=== PATIENT | female | born 1980 | race American Indian/Alaskan Native ===

== ENCOUNTER 2016-07-01 12:27 | Outpatient (CLI) | payer MEDICAID ==
--- NOTE | 2016-07-01 13:24 | XRay Report ---
Left ankle 3 views. Findings: There are no fractures or other acute findings. There is curvilinear calcification at the insertion of the Achilles tendon probably due to tendinitis. There are no other significant findings.
== END 2016-07-01 12:28 | disposition home or self-care (01) ==
LOC: SPVIMAG 12:27
PROVIDERS: ATTEND Family Medicine
DX: M25.872 Other specified joint disorders, left ankle and foot (principal); M25.572 Pain in left ankle and joints of left foot; M79.89 Other specified soft tissue disorders

== ENCOUNTER 2016-09-07 07:56 | Day surgery (SDC) | payer MEDICAID ==
[~2016-09-07 07:56] MED LIST: CLEOCIN 600 MG/50 mL 600 MG/50 ML BAG IV NR; HEPARIN SUB-Q NR
[2016-09-07] MEDS ORDERED: MARCAINE-EPI 0.25%-1:200,000 INFILTRATI ONE ×3 (08:31→11:14)
--- NOTE | 2016-09-07 09:15 | Anesthesia Day of Surgery ---
Anesthesia Day of Surgery - Day of Surgery Patient Examined: Yes Patient H&P Reviewed: Yes Patient is NPO: Yes Beta Blockers: Yes
--- NOTE | 2016-09-07 09:18 | Anesthesia Consultation ---
Anesthesia Consult and Med Hx Date of service: 09/07/16 - Airway Anesthetic Teeth Evaluation: Good ROM Head & Neck: Adequate Mental/Hyoid Distance: Adequate Mallampati Class: Class II Intubation Access Assessment: Probably Good - Pulmonary Exam CTA: Yes - Cardiac Exam Cardiac Exam: RRR - Pre-Operative Health Status ASA Pre-Surgery Classification: ASA3 Proposed Anesthetic Plan: General - Pulmonary Hx Smoking: No Hx Asthma: Yes (exercise induced) SOB: Yes (SOB WITH ACTIVITY) Hx Sleep Apnea: No (JANET PRE SCREEN HIGH RISK) - Cardiovascular System Hx Hypertension: Yes (WITH PREG ONLY, ON METOPROLOL DUE TO FAST HR) Hx Angina: Yes (STATES DUE TO ANEMIA) - Central Nervous System Hx Seizures: No CVA: No Hx Back Pain: Yes - Endocrine Hx Renal Disease: No Hx Liver Disease: No Hx Non-Insulin Dependent Diabetes: Yes Hx Hypothyroidism: No - Hematic Hx Anemia: Yes - Other Systems Hx Cancer: No Hx Obesity: Yes (Morbid obesity BMI 55.9) - Additional Comments Anesthesia Medical History Comments: NAC
[2016-09-07] MEDS ORDERED: NACL BACTERIOSTATIC INFILTRATI ONE (09:28)
[2016-09-07] MEDS ORDERED: SUBLIMAZE IV PRN (09:53)
[2016-09-07] MEDS ORDERED: ZOFRAN IV PRN (09:53)
[2016-09-07] MEDS ORDERED: TRANSDERM-SCOP TD NR (09:54)
[2016-09-07] MEDS ORDERED: VERSED IV NR (10:00)
[2016-09-07] MEDS ORDERED: LACTATED RINGERS 1,000 ML IV SCH (10:00)
[2016-09-07] MEDS ORDERED: PEPCID PO NR (10:00)
[2016-09-07 10:01] LABS: Basophils % (Auto) 0.2 % (0.0-1.8); Eosinophils % (Auto) 0.9 % (0.0-4.3); Hematocrit 36.3 % (30.3-42.9); Hemoglobin 11.5 gm/dl (10.1-14.3); Mean Corpuscular HGB Conc 32 % (30-34); Mean Corpuscular Hemoglobin 24 pg (28-32); Mean Corpuscular Volume 76 fl (79-97); Platelet Count 270 K/mm3 (140-440); Red Blood Count 4.75 M/mm3 (3.65-5.03); Red Cell Distribution Width 17.5 % (13.2-15.2); White Blood Count 10.1 K/mm3 (4.5-11.0)
[2016-09-07 10:12] LABS: Anion Gap 15 mmol/L; BUN/Creatinine Ratio 22.85; Blood Urea Nitrogen 16 mg/dL (7-17); Calcium 8.7 mg/dL (8.4-10.2); Carbon Dioxide 25 mmol/L (22-30); Chloride 102.1 mmol/L (98-107); Glucose 98 mg/dL (65-100); Sodium 138 mmol/L (137-145)
[2016-09-07] MEDS ORDERED: DIPRIVAN 10 MG/ML IV ONE (10:17)
[2016-09-07] MEDS ORDERED: XYLOCAINE MPF 2% ONE (10:18)
[2016-09-07] MEDS ORDERED: ZEMURON IV ONE (10:18)
[2016-09-07] MEDS ORDERED: QUELICIN ONE (10:18)
[2016-09-07] MEDS ORDERED: SUBLIMAZE ONE (10:18)
[2016-09-07] MEDS ORDERED: PROAIR IH ONE (10:34)
[2016-09-07] MEDS ORDERED: NACL 0.9% 1000 ML 1,000 ML IV SCH (11:00)
[2016-09-07] MEDS ORDERED: CLEOCIN 600 MG/50 mL 600 MG/50 ML BAG IV NR (11:00)
[2016-09-07] MEDS ORDERED: ZOFRAN ONE (11:10)
[2016-09-07] MEDS ORDERED: TORADOL ONE (11:10)
[2016-09-07] MEDS ORDERED: NEOSTIGMINE ONE (11:13)
[2016-09-07] MEDS ORDERED: ROBINUL ONE ×2 (11:13→11:40)
[2016-09-07] MEDS ORDERED: NACL 0.9% IR ONE ×2 (11:15)
--- NOTE | 2016-09-07 11:36 | Short Stay Summary ---
Short Stay Documentation Date of service: 09/07/16 - Allergies and Medications Current Medications: Allergies acetaminophen [From [place]] Allergy (Verified 09/07/16 11:29) Itching cat dander Allergy (Verified 09/07/16 11:29) Hives STATES WILL CAUSE SWELLING AND RASH cephalexin monohydrate [From Kef[place]] Allergy (Verified 09/07/16 11:29) Rash chocolate flavor Allergy (Verified 09/07/16 11:29) Rash hydrocodone bitartrate [From [place]] Allergy (Verified 09/07/16 11:29) Itching levofloxacin [From Levaquin] Allergy (Verified 09/07/16 11:29) Itching lisinopril Allergy (Verified 09/07/16 11:29) Anaphylaxis vancomycin Allergy (Verified 09/07/16 11:29) Rash PPD Allergy (Uncoded 07/28/15 10:37) Rash Home Medications Medication Instructions Recorded Confirmed Last Taken Type Ergocalciferol [Vitamin D2] 1 cap PO QWEEK 07/21/15 09/07/16 09/02/16 History Esomeprazole Magnesium [NexIUM] 40 mg PO QDAY 07/21/15 09/07/16 09/07/16 07:30 History Hydrochlorothiazide [HCTZ] 25 mg PO DAILY 07/21/15 09/07/16 1 Week Ago History FLUoxetine HCL [FLUoxetine] 20 mg PO DAILY 01/28/16 09/07/16 1 Month Ago History Iron Carb,Gl/FA/B12/C/Docusate 1 each PO DAILY 01/28/16 09/07/16 1 Week Ago History [Ferralet 90 Dual-Iron Tablet] Levonorgestrel-Ethin Estradiol 0.15 mg PO DAILY 01/28/16 09/07/16 09/06/16 History [Jolessa 0.15 mg-0.03 mg Tablet] metFORMIN [Glucophage] 500 mg PO QDAY 03/04/16 09/07/16 09/07/16 07:30 History ALBUTEROL Inhaler [ProAir HFA 2 puff INHALATION PRN PRN 08/30/16 09/07/16 10:00 History Inhaler] Budesoni/Formoterol 80-4.5(Nf) 1 puff IH PRN PRN 04/0309/07/16 09/05/16 History [Symbicort 80-4.5 (Nf)] Metoprolol [Lopressor] 25 mg PO DAILY 08/30/16 09/07/16 09/07/16 07:30 History Active Medications Famotidine (Pepcid) 20 mg PO PREOP NR Stop: 09/07/16 23:00 Last Admin: 09/07/16 10:10 Dose: 20 mg Fentanyl (Sublimaze) 50 mcg IV Q5MIN PRN PRN Reason: Pain , Severe (7-10) Stop: 09/07/16 18:00 Heparin Sodium (Porcine) (Heparin) 5,000 unit SUB-Q PREOP NR Stop: 09/09/16 05:59 Last Admin: 09/07/16 10:16 Dose: 5,000 unit Hydromorphone HCl (Dilaudid) 0.25 mg IV Q10MIN PRN PRN Reason: Pain, Moderate (4-6) Stop: 09/07/16 18:00 Sodium Chloride (Nacl 0.9% 1000 Ml) 1,000 mls @ 100 mls/hr IV DIRECT KAY Last Admin: 09/07/16 09:40 Dose: 100 mls/hr Clindamycin HCl (Cleocin 600 Mg/50 Ml) 600 mg in 50 mls @ 100 mls/hr IV PREOP NR PRN Reason: Protocol Stop: 09/07/16 23:59 Midazolam HCl (Versed) 2 mg IV PREOP NR Stop: 09/07/16 23:59 Last Admin: 09/07/16 10:20 Dose: 2 mg Ondansetron HCl (Zofran) 4 mg IV ONCE PRN PRN Reason: Nausea And Vomiting Stop: 09/07/16 18:00 Scopolamine (Transderm-Scop) 1 each TD ONCE NR Stop: 09/07/16 18:00 Last Admin: 09/07/16 10:18 Dose: 1 each - Brief post op/procedure progress note Date of procedure: 09/07/16 Pre-op diagnosis: Biliary dyskinesia Post-op diagnosis: same Procedure: Lap luis carlos Anesthesia: GETA, local Surgeon: SONIDO MCKEON Pants Presser: LINDA HOWE Estimated blood loss: minimal Pathology: list (gallbladder) Specimen disposition: to lab Condition: stable - Disposition Condition at discharge: Good Disposition: DISCHARGED TO HOME OR SELFCARE Short Stay Discharge Plan Activity: no restrictions Diet: regular Wound: remove dressing (09/09/16 and then may shower) Additional Instructions: REMOVE SCOPOLAMINE PATCH FROM BEHIND LEFT EAR. Follow up with: TOR MCQUEEN MD [Primary Care Provider] - 7 Days SONIDO MCKEON MD [Staff Physician] - 7 Days Prescriptions: oxyCODONE /ACETAMINOPHEN [Percocet 5/325] 1 - 2 tab PO Q4HR PRN #30 tab PRN Reason: Pain
[2016-09-07] MEDS: DILAUDID IV PRN ×8 (11:55→12:40)
--- NOTE | 2016-09-07 12:06 | Post Anesthesia Evaluation ---
- Post Anesthesia Evaluation Patient Participated: Yes Airway Patent: Yes Stable Respiratory Function: Yes Nausea/Vomiting: No Temp > 96.8F: Yes Pain Manageable: Yes Adequeate Hydration: Yes Anesthesia Complications: No
[2016-09-07] MEDS ORDERED: DILAUDID IV PRN (12:20)
--- NOTE | 2016-09-07 12:27 | Operative Report ---
PREOPERATIVE DIAGNOSIS: Biliary dyskinesia. POSTOPERATIVE DIAGNOSIS: Biliary dyskinesia. PROCEDURE: Laparoscopic cholecystectomy. SURGEON: Rafat Schumacher MD READY TO WEAR DEPARTMENT MANAGER: ANESTHESIA: General and local. ESTIMATED BLOOD LOSS: Minimal. SPECIMEN: Gallbladder. COMPLICATIONS: None. INDICATIONS: This is a 36-year-old female who has evidence of biliary dyskinesia, who presents now for laparoscopic cholecystectomy. OPERATIVE COURSE: The patient was brought to the operating room, identified, and placed in the supine position. General anesthesia was achieved. Her abdomen was prepped and draped in usual manner. Prior to all incisions, the area was infiltrated with 0.25% Marcaine. A supraumbilical 5 mm incision was made using Veress needle technique. The abdomen was insufflated to 15 mmHg. A 5 mm trocar was inserted using a 30-degree 5-mm telescope. The trocars were placed under direct vision, which included a 10 mm epigastric port site and two 5 mm right lateral ports. The liver was found the enlarged and very very friable. We grasped the gallbladder and elevated, tented up the triangle of Calot and then dissected out the cystic duct and artery. Once they were clearly identified going to the gallbladder, we placed clips in the duct proximally and distally and transected it, and clips in the artery were placed proximally and distally and then it was transected. The gallbladder was then removed from the liver bed using electrocautery and delivered through the epigastric port site. Hemostasis of the liver bed was achieved with electrocautery and at the end of procedure, everything was hemostatic. No signs of injury to other structures. We removed the ports under direct vision. No signs of bleeding from the port sites. We evacuated the CO2 and closed all the incisions with a 4-0 Vicryl suture, Steri-Strips and bandage. JOB# [id number] MARIZA/BRANDO
--- NOTE | 2016-09-07 12:47 | Post Anesthesia Evaluation ---
- Post Anesthesia Evaluation Patient Participated: No Airway Patent: Yes Stable Respiratory Function: Yes Nausea/Vomiting: No Temp > 96.8F: Yes Pain Manageable: Yes Adequeate Hydration: Yes Anesthesia Complications: No Block Receding Appropriately: Not Applicable Patient on Ventilator: No
[2016-09-07] MEDS ORDERED: PERCOCET 5/325 PO PRN (13:22)
[2016-09-07 13:53] VITALS: BP 125/86
== END 2016-09-07 14:20 | disposition home or self-care (01) ==
LOC: OR 07:56
PROVIDERS: ATTEND Surgery
DX: K82.8 Other specified diseases of gallbladder (principal); J45.909 Unspecified asthma, uncomplicated; E11.9 Type 2 diabetes mellitus without complications; F41.9 Anxiety disorder, unspecified; K21.9 Gastro-esophageal reflux disease without esophagitis; D64.9 Anemia, unspecified; E66.01 Morbid (severe) obesity due to excess calories; Z68.43 Body mass index [BMI] 50.0-59.9, adult; Z79.899 Other long term (current) drug therapy; Z80.3 Family history of malignant neoplasm of breast; Z82.49 Family history of ischemic heart disease and other diseases of the circulatory system
CPT/HCPCS: 36415; 47562; 80048; 81025; 82962; 85025; 88304; A4217; J0330; J1170; J1644; J2250; J2405; J2704; J2710; J3010; J7030; J1885

== ENCOUNTER → 2021-05-08 | Outpatient (CLI) | payer MEDICAID | END | disposition home or self-care (01) | LOC: SLR 11:00 | PROVIDERS: ATTEND Internal Medicine Critical Care Medicine | DX: G47.33 Obstructive sleep apnea (adult) (pediatric) (principal); R40.0 Somnolence; E66.9 Obesity, unspecified | CPT/HCPCS: G0399 ==